=== PATIENT | male | born 1935 | race Caucasian/White ===

== ENCOUNTER 2016-05-24 08:13 | Day surgery (SDC) | payer MEDICARE, OTHER ==
[2016-05-22 11:43] LABS: HEMOGLOBIN 12.6 g/dL (13.7-18.0)
[2016-05-22 11:55] LABS: BLOOD UREA NITROGEN 28 mg/dL (7-18)
[2016-05-22 12:00] LABS: ASPARTATE AMINO TRANSFERASE 26 U/L (15-37)
[~2016-05-24] VITALS: Ht 185.4 cm; Wt 91.0 kg
[~2016-05-24 08:13] MED LIST: ALEN10TA6 PO; AMPI500C2 PO; ATOR10TA9 PO; BRIM5DRO2 EACHEYE; BRIM5DRO2 RIGHTEYE; BRIN10DR EACHEYE; BUME1TAB21 PO; CARV6.2512 PO; CARV6.252 PO; CIPR500T87 PO; CITA10TA4 PO; DOCU-30 PO; DRON5CAP15 PO; DUTA0.5C PO; FLUD0.1T PO; FURO20TA3 PO; FURO40TA6 PO; GABA100C PO; GABA100C8 PO; HYDR-3144 PO; INSU100C SQ-INSULIN; INSU100C5 SQ-INSULIN; INSU100I18 SQ-INSULIN; INSU100I28 SQ-INSULIN; INSU100V13 SC; INSU100V8 SQ; LATA2.5D3 EACHEYE; LATA2.5D3 RIGHTEYE; LEVO175T5 PO; LISI2.5T PO; LISI5TAB7 PO; METF10002 PO; METF500T PO; METF500T4 PO; METH4TAB PO; METH4TAB6 PO; METH4TAB7 PO; PANT40TA3 PO; POTA10CA PO; POTA10TA5 PO; POTA10TA90 PO; POTA20PA PO; RIVA15TA PO; RIVA20TA PO; SIMV20TA3 PO; TAMS-11 PO; TAMS0.4C2 PO; TEMA15CA6 PO; TRAM-28 PO; TRAM50TA2 PO; VENL75TA2 PO; [UNRECOGNIZED DRUG - OTHER]
[2016-05-24 08:50] VITALS: BP 124/75
[2016-05-24] MEDS ORDERED: PROTAMINE SULFATE 10 MG/ML, 25ML ONE (09:32)
[2016-05-24] MEDS ORDERED: MIDAZOLAM 1 MG/ML, 5ML ONE (09:32)
[2016-05-24] MEDS ORDERED: HEPARIN 1,000 UNITS/ML, 10ML ONE (09:33)
[2016-05-24] MEDS ORDERED: FENTANYL PF 100 MCG/2ML ONE (09:33)
[2016-05-24] MEDS ORDERED: FLUMAZENIL 0.1 MG/1 ML, 5ML ONE (09:33)
[2016-05-24] MEDS ORDERED: NALOXONE 1 MG/ML, 2ML ONE (09:33)
[2016-05-24] MEDS ORDERED: LIDOCAINE 2%, 20ML ONE (09:49)
[2016-05-24] MEDS ORDERED: VISIPAQUE 270 MG/ML, 150ML BOTTLE ONE (10:00)
== END 2016-05-24 14:00 | disposition home or self-care (01) ==
LOC: OUT 08:13
PROVIDERS: ATTEND Internal Medicine Cardiovascular Disease
DX: I70.211 Atherosclerosis of native arteries of extremities with intermittent claudication, right leg (principal); E11.9 Type 2 diabetes mellitus without complications; E78.2 Mixed hyperlipidemia; I48.2 Chronic atrial fibrillation; I11.0 Hypertensive heart disease with heart failure; I50.33 Acute on chronic diastolic (congestive) heart failure; Z82.49 Family history of ischemic heart disease and other diseases of the circulatory system; Z95.0 Presence of cardiac pacemaker
CPT/HCPCS: 36415; 37225; 71020; 75625; 75710; 80053; 85025; 85610; 85730; C1714; C1725; C1769; C1884; C1894; C2623; J1644; J2250; J3010; J3490; Q9966; 99156; 99157; J2720; J2310

== ENCOUNTER → 2016-06-28 | Outpatient (CLI) | payer MEDICARE, OTHER | END | disposition home or self-care (01) | LOC: CVU 08:35 | PROVIDERS: ATTEND Nurse Practitioner Family | DX: I70.203 Unspecified atherosclerosis of native arteries of extremities, bilateral legs (principal); E11.9 Type 2 diabetes mellitus without complications; E78.5 Hyperlipidemia, unspecified; Z87.891 Personal history of nicotine dependence; Z95.0 Presence of cardiac pacemaker; Z95.5 Presence of coronary angioplasty implant and graft; Z79.01 Long term (current) use of anticoagulants | CPT/HCPCS: 93922; 93926 ==

== ENCOUNTER 2017-03-11 11:20 | Observation (INO) | payer MEDICARE, OTHER ==
[2017-03-11] VITALS (7 sets, daily range): BP systolic 145–157; BP diastolic 72–88
[~2017-03-11] VITALS: Ht 185.4 cm; Wt 89.9 kg
[~2017-03-11 11:20] MED LIST changes: +DOCU-131 PO; -DOCU-30 PO; +GABA-826 PO; -GABA100C8 PO; -HYDR-3144 PO; +HYDR-3245 PO; +POTA10TA6 PO; -POTA10TA90 PO; -TRAM-28 PO; +TRAM-47 PO
[2017-03-11] MEDS: SODIUM CHLORIDE 0.9% 1,000 ML IV SCH ×2 (11:56→23:30)
[2017-03-11] MEDS: PLEASE ENTER HEIGHT AND WEIGHT MC SCH ×2 (12:18→20:18)
[2017-03-11] MEDS ORDERED: INSU100C SQ-INSULIN (12:28)
[2017-03-11] MEDS ORDERED: TAMS-11 PO (12:30)
[2017-03-11 12:31] LABS: BASOPHILS # (AUTO) 0.03 x10^3/uL (0-0.1); BASOPHILS % (AUTO) 0 % (0-1); EOSINOPHILS # (AUTO) 0.14 x10^3/uL (0-0.4); EOSINOPHILS % (AUTO) 1 % (1-7); LYMPHOCYTES # (AUTO) 1.87 x10^3/uL (1-3.4); LYMPHOCYTES % (AUTO) 17 % (22-44); MD NO; MEAN CORPUSCULAR HEMOGLOBIN 28.8 pg (27.5-34.5); MEAN CORPUSCULAR HGB CONC 32.5 g/dL (33.2-36.2); MEAN CORPUSCULAR VOLUME 88.5 fL (81-97); MEAN PLATELET VOLUME 9.8 fL (7.4-10.4); MONOCYTES # (AUTO) 0.92 x10^3/uL (0.2-0.8); MONOCYTES % (AUTO) 8 % (2-9); NEUTROPHILS # (AUTO) 8.05 x10^3/uL (1.8-6.8); NEUTROPHILS % (AUTO) 73 % (42-75); PLATELET COUNT 195 x10^3/uL (130-400); RED BLOOD COUNT 4.24 x10^6/uL (4.38-5.82); RED CELL DISTRIBUTION WIDTH 15.1 % (9.4-14.8)
[2017-03-11] MEDS ORDERED: LISI2.5T PO (12:31)
[2017-03-11 12:34] LABS: INTERNATIONAL NORMALIZED RATIO 1.12 (0.93-1.1); PROTHROMBIN TIME 11.6 Seconds (9.6-11.5)
[2017-03-11] MEDS ORDERED: INSU100I13 SQ (12:34)
[2017-03-11 12:37] LABS: ANION GAP 6 mmol/L (5-15); CHLORIDE 105 mmol/L (98-107); CREATININE 1.07 mg/dL (0.7-1.3)
[2017-03-11] MEDS ORDERED: MIDAZOLAM 1 MG/ML, 2ML ONE (14:33)
[2017-03-11] MEDS ORDERED: FENTANYL PF 100 MCG/2ML ONE (14:33)
[2017-03-11] MEDS ORDERED: LIDOCAINE 2%, 20ML ONE (14:34)
[2017-03-11] MEDS ORDERED: CEFAZOLIN 1,000 MG ONE (14:34)
[2017-03-11] MEDS ORDERED: CEFAZOLIN PMX 1GM/50ML 50 ML ONE (14:34)
[2017-03-11] MEDS ORDERED: BUMETANIDE 1 MG TABLET PO PRN (16:00)
[2017-03-11] MEDS ORDERED: HYDROcodone/APAP 5/325 TABLET PO PRN (16:00)
[2017-03-11] MEDS ORDERED: ACETAMINOPHEN 325 MG TABLET PO PRN (16:00)
[2017-03-11] MEDS: GABAPENTIN 100 MG CAPSULE PO SCH ×2 (18:31→21:46)
[2017-03-11] MEDS ORDERED: ATORVASTATIN 10 MG TABLET PO SCH (21:00)
[2017-03-11] MEDS: metFORMIN 500 MG TABLET PO SCH (21:46)
[2017-03-11] MEDS: CEFAZOLIN PMX 1GM/50ML 50 ML IVPB SCH (23:30)
[2017-03-12 01:28] VITALS: BP 140/70
[2017-03-12] MEDS: PLEASE ENTER HEIGHT AND WEIGHT MC SCH (04:18)
[2017-03-12] MEDS ORDERED: ALENDRONATE 10 MG TABLET PO SCH (06:30)
[2017-03-12 07:54] VITALS: BP 146/80
[2017-03-12 08:01] VITALS: BP 146/72
[2017-03-12] MEDS: CEFAZOLIN PMX 1GM/50ML 50 ML IVPB SCH (08:52)
[2017-03-12] MEDS: metFORMIN 500 MG TABLET PO SCH (08:52)
[2017-03-12] MEDS: GABAPENTIN 100 MG CAPSULE PO SCH (08:53)
[2017-03-12] MEDS ORDERED: INSULIN GLARGINE 100 UNITS/ML, PEN SQ-INSULIN SCH (09:00)
[2017-03-12] MEDS ORDERED: LEVOTHYROXINE 175 MCG TABLET PO SCH (09:00)
[2017-03-12] MEDS ORDERED: TAMSULOSIN 0.4 MG CAP.ER.24H PO SCH (09:00)
[2017-03-12] MEDS ORDERED: POTASSIUM CHLORIDE 10 MEQ TABLET.ER PO SCH (09:00)
[2017-03-12] MEDS ORDERED: DUTASTERIDE 0.5 MG CAPSULE PO SCH (09:00)
[2017-03-12] MEDS ORDERED: FUROSEMIDE 20 MG TABLET PO SCH (09:00)
[2017-03-12] MEDS ORDERED: ACET325T14 PO (09:55)
== END 2017-03-12 12:35 | disposition home or self-care (01) ==
LOC: CACL 11:20 → ORIP 15:53 → 5SO 16:10 → DCLOUNGE 03-12 12:25
PROVIDERS: ADMIT Internal Medicine Cardiovascular Disease; ATTEND Internal Medicine Cardiovascular Disease
DX: I48.2 Chronic atrial fibrillation (principal); I50.33 Acute on chronic diastolic (congestive) heart failure; Z95.0 Presence of cardiac pacemaker
CPT/HCPCS: 33216; 33227; 36415; 71045; 71046; 80048; 82962; 83036; 85025; 85610; 93005; 96372; 96374; 99156; 99157; C1779; C1786; G0378; J0690; J1815; J2250; J3010; J3490; J7030; J7509; Q9967